=== PATIENT | female | born 1950 | race Caucasian/White ===

== ENCOUNTER 2025-09-29 11:07 | Outpatient (OUT) | payer MEDICARE, OTHER, SELFPAY ==
--- OUTSIDE RECORDS SUMMARY | 2025-09-29 11:17 | XMS_ITS | Clinical Summary ---
Author Organization [facility] Address [address] [place], [place] [id number] Care Team Providers Care Sales Operations Associate Name Role Phone Yolanda Mae MD Unavailable [phone] Allergies Active AllergyReactionsCriticalityNoted WuryTomfeecwOncuxaderqqlEsmi19/20/2022 Brompheniramine-PhenylephrineOther: See Gvcfsiui07/20/2022uloxetineUnknown 05/24/2022Ezetimibe-SimvastatinOther: See Tnubyggd16/20/2022FexofenadineHives High05/24/2022IbuprofenOther: See Gviavdtz63/20/2022MeloxicamGI Upset05/24/2022 LwfoefzackcAkupmchj73/20/2022 Medications MedicationSigDispense QuantityRefillsLast FilledStart DateEnd DateStatus acetaminophen 650 mg CR tablet Take 650 mg by mouth.Active gabapentin (NEURONTIN) 600 mg tablet Take 1 tablet by mouth three times daily.08/20/2018Active loratadine (CLARITIN) 10 mg tablet Take 1 tablet by mouth once daily.Active metFORMIN (GLUCOPHAGE) 1,000 mg tablet Take 1 tablet by mouth.03/24/2017Active pravastatin (PRAVACHOL) 20 mg tablet Take 1 tablet by mouth once daily.10/09/2016Active losartan (COZAAR) 50 mg tablet Take 50 mg by mouth once daily.01/18/2022ctive omega-3 DHA-EPA (FISH OIL) 1,200 (144-216) mg capsule Take by mouth.Active sertraline (ZOLOFT) 100 mg tablet 02/02/2022ctive tiZANidine (ZANAFLEX) 4 mg tablet Take 1 tablet by mouth once daily.03/14/2017Active levothyroxine (SYNTHROID) 25 mcg tablet Take 1 tablet by mouth once daily.03/24/2017Active cholecalciferol, Vitamin D3, (VITAMIN D3) 1,250 mcg (50,000 unit) cap capsule Take 1 capsule by mouth one time a week.Active ubidecarenone (COQ-10 ORAL) Take 100 mg by mouth.Active KRILL OIL ORAL Take by mouth.Active blood sugar diagnostic (ONETOUCH VERIO TEST STRIPS) test strip Indications:Type 2 diabetes mellitus with diabetic neuropathy, with long-term current use of insulin (HCC)Use To check Blood glucose three times daily 200 Each ctive ONETOUCH VERIO REFLECT METER Indications:Type 2 diabetes mellitus with diabetic neuropathy, with long-term current use of insulin (HCC)USE TO CHECK GLUCOSE THREE TIMES DAILY 1 Each 03/28/2022ctive Insulin [place], Disposable, (PEN NEEDLE) 32 gauge x 5/32 Indications:Type 2 diabetes mellitus without complication, with long-term current use of insulin ([facility])Use to inject insulin up to 8 times per day. 100 Each ctive acetaminophen-codeine (TYLENOL-COD #3) 300-30 mg per tablet Take 1 tablet by mouth every 4 hours as needed. 1-2 tabs max 6 a dayActive NOVOLOG FLEXPEN U-100 INSULIN 100 unit/mL (3 mL) Indications:Type 2 diabetes mellitus with diabetic neuropathy, with long-term current use of insulin ([facility])Inject 5 Units subcutaneously twice daily. Use 5 units with lunch and dinner 9 mL ctive insulin glargine (LANTUS SOLOSTAR U-100 INSULIN) 100 unit/mL (3 mL) Indications:Type 2 diabetes mellitus without complication, with long-term current use of insulin ([facility])Inject 20 Units subcutaneously every morning. 18 mL ctive Active Problems ProblemNoted DateDiagnosed DateType 2 diabetes mellitus with diabetic neuropathy, with long-term current use of rtaeptm2602/08/2022 Family History Medical HistoryRelationCommentsCancerFatherHeart diseaseFatherNo Known Problems MotherRelationStatusCommentsFatherDeceasedMotherDeceased Social History Tobacco UseTypesPacks/DayYears UsedDateSmoking Tobacco: FormerSmokeless Tobacco: Never Tobacco Cessation:Counseling Given: Not Answered Alcohol UseStandard Drinks/WeekCommentsNever0 (1 standard drink = 0.6 oz pure alcohol)Area Deprivation IndexAnswerDate RecordedNational Score (1-100), lower number is lower tgtn686303/12/2023State Score (1-10), lower number is lower risk7 3Data from: https://www.neighborhoodatlas.medicine.[facility].edu/. Last address used for Fernando Erwin 3CommentsNoSex and Gender InformationValueDate RecordedSex Assigned at WmuciRfkmnt87/22/2022 1:49 PM EDTLegal OqhLgiesb76/23/2022 3:13 PM EDTGender YioyqwofLxtyrl67/22/2022 1:49 PM EDTSexual OrientationNot on file Last Filed Vital Signs Vital SignReadingTime TakenCommentsBlood Sisbvpht162/7803 9:46 AM EDT Evpqg839401/17/2023 9:46 AM UNDQctkzmwotkr30 ??C (96.8 ??F)08/31/2022 2:55 PM EDT Respiratory Eqzv7577 2:55 PM EDTOxygen Gmgzsbqlug60%08/31/2022 2:55 PM EDTInhaled Oxygen Concentration--Kaufnv612.6 kg (321 lb)01/17/2023 9:46 AM EDT Cbhtrp191.6 cm (5' 6 )08/31/2022 2:55 PM EDTBody Mass Index51.8108/31/2022 2:55 PM EDT Plan of Treatment Health MaintenanceDue DateLast DoneCommentsDiabetic Foot Exam1Dilated Retinal Exam1960Urine Albumin:Creatinine Ratio1Annual PCP Team Chronic Disease Visit1968Anxiety Xvzivvnqt68/02/1969Depression Screening 1968Hepatitis C Uugvrwnsn17/02/1969LDL Tdiykyslnfg43/02/1969CT Jaknpqjutyel03/02/1996Cologuard (FIT-DNA)12/07/19950055Jdpumusplpx07/02/1996 Colorectal Cancer Bnbflvzoh63/02/1996Fecal Occult Blood1995Sigmoidoscopy 1995Shingrix Vaccine (1 of 2)2000RSV Vaccine (1 - Risk 60-74 years 1-dose series)2010one Density Ygaugvxng42/02/2016Medicare Annual Wellness Visit08/05/2016DTaP,Tdap,Td Vaccine (3 - Td or Tdap), 01/03/2011Mammogram Xswtrmlmi24, 03/30/20212349AiE4H60/15/2023 01/17/2023, 04/26/2022, 01/17/2022, Additional history existsAdvance Directive Otubypxxee14/01/2025Covid-19 Vaccine ( season)/10/2022, 10/12/2021, 02/03/2021, Additional history existsInfluenza Vaccine (#1) /03/2022, 09/14/2021, 07/15/2020, Additional history exists Pneumococcal Vaccine: 50+Ljhmykjuh16/29/2017, 12/15/2015, 08/15/2010 Procedures Procedure NamePriorityDate/TimeAssociated DiagnosisCommentsHEMOGLOBIN A1C (POC) Ogsbybf4901/17/2023 9:50 AM EDT Diabetes mellitus without complication (HCC) from Last 3 Months or Most Recently Relevant to Health Maintenance Results * (ABNORMAL) HEMOGLOBIN A1C (POC) (01/17/2023 9:50 AM EDT)ComponentValueRef RangeTest MethodAnalysis TimePerformed AtPathologist SignatureHemoglobin A1C (POCT)7.5(A)4.2 - 5.6 %[facility] HospitalComment: Location:[facility], [address] [place] [address], [facility] Point of care (POC) Hemoglobin A1c (HGBA1C) testing is intended to assess glucose control and provide a management tool for patients known to have diabetes and their healthcare providers. ??Target HGBA1C levels may depend on specific clinical circumstances. ??POC HGBA1C is not intended for use as a diagnostic or screening test; laboratory-based testing should be used for diagnostic purposes. ??The following information is supplemental and may not be applicable to specific diabetes management situations: ??The POC device bench assembler electrical provides a normal range of 4.2% to 6.5% for the HGBA1C POC test. However, the [place] [employer] ??guidelines indicate that patients with HGBA1C in the range of 5.7% to 6.4% are at increased risk for development of diabetes and that intervention by lifestyle modification may be beneficial. ??A HGBA1C level greater than or equal to 6.5% is considered diagnostic of diabetes, pending confirmatory testing. ??Use of HGBA1C testing to evaluate glucose control may not be appropriate for patients with hemoglobin variants or other conditions (e.g. anemia) that alter red blood cell lifespan. Specimen (Source)Anatomical Location / LateralityCollection Method / Volume Collection TimeReceived TimeBLOOD SPECIMEN / Cligyln5701/17/2023 9:50 AM EDT Narrative Authorizing ProviderResult TypeResult StatusRashika Percy MDP TESTINGFinal ResultPerforming OrganizationAddressCity/State/ZIP CodePhone Number [facility] POINT OF CARE [address] from Last 3 Months or Most Recently Relevant to Health Maintenance Insurance Care Teams Team MemberRelationshipSpecialtyStart DateEnd Date Wondercamelia, Yolanda Salazar MD [facility]01/25/22
--- OUTSIDE RECORDS SUMMARY | 2025-09-29 11:17 | XMS_ITS | Clinical Summary ---
Author Organization [facility] Address [address] [place] [address] Care Team Providers Care Lode Miner Name Role Phone Karen, Shayy BONILLA Unavailable Yolanda Mae MD Unavailable Salbador Hatch MD Primary Care Provider [phone] Allergies Active AllergyReactionsCriticalityNoted QotvEjwsygubUalfanjsqvju36/23/2023 Other Reaction(s): rash,itch Brompheniramine-Janptfexldbha38/10/2021 Other Reaction(s): Other: See Comments Other reaction(s): sleepy JfcxwwbnxbKwfgeDvhejg12/20/2022 Other Reaction(s): Unknown Other reaction(s): Unknown Duloxetine MzqRayghkw91/23/2023Ezetimibe-Srchtizvkuq90/23/2023 Other Reaction(s): aches Beoofodrbrld35/23/2023 Other Reaction(s): hives,edema Fexofenadine TcxYdsop81/05/1828Qmotpqebl96/23/2023 Other Reaction(s): sleepy Pkjklrrgei02/18/2024 Had multiple side effects Dxmpkmqje67/23/2023 Other Reaction(s): constipation Jihoynfyqlo61/23/2023 Other Reaction(s): hives/swelling Medications MedicationSigDispense QuantityRefillsLast FilledStart DateEnd DateStatus co-enzyme Q-10 30 MG capsule Take 1 tablet by mouth in the eveningActive loratadine (Claritin) 10 MG tablet Take 1 tablet by mouth DailyActive omega-3 (fish oil) 1200 MG capsule Take by mouth in the morning.Active OneTouch Verio test strip 08/10/2022ctive Continuous Blood Gluc Hematology Supervisor (FreeStyle Gaurav reader) device Indications:Diabetic peripheral neuropathy associated with type 2 diabetes mellitus (HCC)Inject 1 each under the skin if needed (to check bg levels). 1 each 08/10/2023ctive gabapentin (Neurontin) 600 MG tablet Indications:Diabetic peripheral neuropathy associated with type 2 diabetes mellitus (HCC)Take 1 tablet (600 mg) by mouth in the morning and 1 tablet (600 mg) in the evening and 1 tablet (600 mg) before bedtime. 270 tablet 02/22/2024ctive Continuous Glucose Sensor (FreeStyle Gaurav 3 Sensor) [facility] [place]ications:Diabetic peripheral neuropathy associated with type 2 diabetes mellitus (HCC)Inject 1 Device under the skin every 14 (fourteen) days 6 each ctive tiZANidine (Zanaflex) 4 MG tablet Indications:Restless legTake 1 tablet (4 mg) by mouth Daily 90 tablet ctive primidone (Mysoline) 50 MG tablet Take 50 mg by mouth at bedtimeActive insulin aspart (NovoLOG FLEXPEN) 100 UNIT/ML pen Indications:Diabetic peripheral neuropathy associated with type 2 diabetes mellitus (HCC)5 units at the evening meal 15 mL ctive levothyroxine (Synthroid) 50 MCG tablet Indications:Hypothyroidism, unspecified typeTake 1 tablet (50 mcg) by mouth in the morning. Take before meals. 90 tablet ctive cholecalciferol (Vitamin D-3) 50 MCG (2000 UT) capsule Take 2,000 Units by mouth DailyActive metFORMIN (Glucophage) 1000 MG tablet Indications:Diabetic peripheral neuropathy associated with type 2 diabetes mellitus (HCC)Take 1 tablet (1,000 mg) by mouth in the morning and 1 tablet (1,000 mg) in the evening. Take with meals. 180 tablet tive insulin pen needle (Unifine Pentips Plus) 32G x 4 mm [facility] [place] Indications:Diabetic peripheral neuropathy associated with type 2 diabetes mellitus (HCC)Use as instructed 100 each ctive clobetasol (Temovate) 0.05 % external solution Indications:Dry scalpApply topically Daily 50 mL 5Active insulin glargine (Toujeo SoloStar) 300 UNIT/ML injection Indications:Type 2 diabetes mellitus with other specified complication, with long-term current use of insulin (HCC),Type 2 diabetes mellitus with diabetic cataract, with long-term current use of insulin (HCC),termite control servicer (current) use of insulin ([facility]),Type 2 diabetes mellitus with diabetic polyneuropathy, with long- term current use of insulin ([facility])INJECT 21 UNITS SUBCUTANEOUSLY IN THE MORNING 6 mL 5Active sertraline (Zoloft) 100 MG tablet Indications:Moderate episode of recurrent major depressive disorder (HCC)Take 2 tablets (200 mg) by mouth Daily 180 tablet 3085Active losartan-hydroCHLOROthiazide (Hyzaar) 100-25 MG tablet Indications:Essential hypertensionTake 1 tablet by mouth Daily 30 tablet 1116Active buPROPion XL (Wellbutrin XL) 150 MG 24 hr tablet Indications:Major depression, recurrent, chronicTAKE 1 TABLET BY MOUTH IN THE MORNING . SWALLOW WHOLE, DO NOT CRUSH, SPLIT, OR CHEW. 30 tablet 5Active pravastatin (Pravachol) 40 MG tablet Indications:Mixed hyperlipidemiaTake 1 tablet (40 mg) by mouth Daily 90 tablet 5Active pravastatin (Pravachol) 40 MG tablet Indications:Mixed hyperlipidemiaTake 1 tablet (40 mg) by mouth Daily 90 tablet 310/Discontinued(Reorder) buPROPion XL (Wellbutrin XL) 150 MG 24 hr tablet Indications:Major depression, recurrent, chronicTake 1 tablet (150 mg) by mouth in the morning. Do not crush, chew, or split. 30 tablet 5111/14/2024Discontinued Active Problems ProblemNoted DateDiagnosed DateCharcot's joint, right ankle and foot05/29/2025 Primary osteoarthritis, right ankle and foot05/29/20259725Jiahuy98/11/2024iabetic jypakjrd12/03/2024Major depression, recurrent, wwlqxhi3510/02/2023ubital tunnel syndrome of both upper vqsoezexutd25/19/6343Ukctkvtea42/19/2023Tinnitus aurium, qxljjksan61/19/2023ognitive lryayan4808/23/2023Low back pain with bilateral vceoasxr91/24/2023cquired hallux varus03/27/2023ngiopathy, siticbbm99/23/2023 Uzzeqpx9203/27/20237723Itbyzlsahh43/23/2023ilateral qevmbrtd22/23/2023hronic reactive otitis externa of both ears03/27/2023egeneration of cervical intervertebral disc03/27/20239026Wnxcgb14/23/2023Scalp wlrwzcqti43/23/2023Essential /23/2023ait mhizlsmjdgn08/23/2023History of total hysterectomy 03/27/20231444Fmcvltluzxnusswpzyjm52/23/2023Mixed mdyzshpuwqfalp07/23/2023 Yfqywvxnzem35/23/2023Left anterior fascicular block03/27/2023LVH (left ventricular hypertrophy)03/27/2023Macular edema of left eye03/27/2023Menopausal state03/27/2023Obsessive-compulsive fmcpsshe03/23/1781Klfxucojfncxoz68/23/2023 DJD (degenerative joint disease)03/27/20232334Hcmifalavr09/23/2023eripheral vascular djnrnrg6803/27/2023Vitamin D xsyozrqvda99/23/2023Macular puckering, left eye01/02/2023ody mass index (BMI) of 50-59.9 in adult09/13/2021eripheral angiopathy due to type 2 diabetes osnitwtt46/29/2021evere knewknj5606/29/2021 Abnormal EKG002/04/2021ong term current use of hdrlvdm1807/16/2020Elevated liver jwqoebj8407/16/2020Malignant melanoma of skin04/01/2019Headache jbtyqgzp98/30/2018 Secondary localized osteoarthrosis of ankle and foot08/14/2018Chronic pain 09/03/2017Diabetic peripheral neuropathy associated with type 2 diabetes bjemqbsl49/29/2017 Assessment & Plan (07/09/2023 2:06 PM EDT): During the appointment today all pertinent labs, imaging, health maintenance, and glucose readings were reviewed. Encouraged to check blood glucose throughout the day with some fasting and some PP readings. They are to bring their glucose meter/cgm in to all appointments. All of the patients questions, treatment options, and current care plan and goals were discussed. Acopy of this along with pertinent instructions were given to the patient at the end of the appointment. The patient voices understanding of all of this and is to call in between appointments if they have any problems or questions. Dao Manning control is stable overall. , Discussed dietary changes at length. Encouraged to limitsimple carbs and focus more on healthy protein/fat with all meals and snacks. They should also avoid any sugary drinks. , Discussed importance of checking blood glucose regularly and bringing them into their appointment in order for me to better adjust their medications. , Instructed on the importance of taking insulin before eating. If it has been more than 30-45 min since eating they should not give the meal dose but should just give a correction insulin dose. , Instructed on the proper insulin injection technique either in the abdomen, upper outer thigh, or back of the arm. They are to rotate injection sites to prevent scar tissue. , Instructions given today include: Hypoglycemia management, Insulin instructions, and Dietary education. Will work on getting her a gaurav 3 cgm to better manage her diabetes on a daily basis and work on improving her diet. PURVI on CPAP12/27/2016History of methicillin resistant Staphylococcus aureus oqdagalhu96/01/2015Seasonal allergic ezbwlnwy50/01/2015Restless legs10/05/2015 Resolved Problems ProblemNoted DateDiagnosed DateResolved DateSweating zeoqgnefxai88/11/2024 11/03/2024harcot's arthropathy associated with type 2 diabetes mellitus Episode of recurrent major depressive mhrffzep86/23/2023 09/05/20232964Brlwlihxmhigvr04/23/202309/01/2023Skin ulcer of toe of left foot with fat layer rosfxrv58Type 2 diabetes whwcvlcu32/23/2023 07/06/2023rimary localized osteoarthrosis of ankle and foot Ulcer of foot due to type 2 diabetes tffivdog35hronic foot ulcerSkin ulcer of toe of right foot with fat layer exposed Obsessive compulsive / Sensorineural hearing loss (SNHL) of both ears/iabetic neuropathic rxlnkadjwny50astroesophageal reflux disease Encounters DateTypeDepartmentCare GvuhYrssjccnmyz79/20/2025Refill [place] [id number] [facility] [place] [phone] Salbador Hatch MD Mixed thtzohlkgfwujl56/10/2025 12:00 PM ESTTelemedicine [facility] [address] [facility] [address] Esperanza Peters LISW-S Moderate episode of recurrent major depressive disorder (HCC)09/14/2025Travel 09/13/2025Refill [id number] [facility] [place] [phone] Salbador Hatch MD Major depression, recurrent, lgwtpli0408/11/2025 1:00 PM EDTOffice Visit [place] [address] [facility] [place] [phone] Salbador Hatch MD Essential hypertension (Primary Dx); Type 2 diabetes mellitus with other specified complication, with long-term current use of insulin (HCC); Severe obesity ([facility]-HCC); Degeneration of cervical intervertebral disc; Osteopenia, unspecified location; Hypothyroidism, unspecified type; Diaphoresis; Balance trwobsm7308/11/2025Orders Only [address] [place] [phone] Salbador Hatch MD 08/11/2025amboo flowsheet [place] [id number] [facility] [place] [phone] Salbador Hatch MD 08/11/20258404Tifcvg59/02/2025 11:00 AM EDTSocial Work [facility] [address] [facility] [place] [address] Tichnor, Esperanza S, FRUIT RO[employer] HAND-S Moderate episode of recurrent major depressive disorder (HCC)08/06/2025amb flowsheet [facility] [address] [facility] [place] [address] Esperanza Peters LISW-S 08/06/20252303Kqvcwk80/09/2025 1:00 PM EDTOffice Visit [place] [address] [place] [address] Salbador Hatch MD Type 2 diabetes mellitus with other specified complication, with long-term current use of insulin (HCC) (Primary Dx); 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 [address] Esperanza Peters LISW-S Moderate episode of recurrent major depressive disorder (HCC)07/07/2025amb flowsheet [facility] [address] [place] [address] Esperanza Peters LISW-S 07/07/2025Travelfrom Last 3 Months Immunizations ImmunizationAdministration DatesNext DueInfluenza, High Dose Seasonal, Preservative Free09/09/2019,09/03/2018,09/03/2017,08/02/2016Influenza, High-dose Seasonal, Quadrivalent, Preservative Free09/05/2023,08/09/2022,09/14/2021, 07/15/2020Influenza, injectable, quadrivalent, preservative free07/30/2014 Influenza, seasonal, intradermal, preservative free08/03/2015Moderna SARS-CoV-2 50mcg/0.5mL Nytoigs87/12/2022Pneumococcal Conjugate PCV 13012/15/2015Pneumococcal Polysaccharide HZGG5118,08/15/2010Tdap03/22/2011 Family History Medical HistoryRelationNameCommentsCancerFatherDepressionFatherHeart disease FatherMelanomaFatherRheum arthritisFatherAtrial fibrillationMotherHeart disease MotherMacular degenerationMotherDiabetesOthergrandparent, aunt, uncleCancer SiblingBreast cancerSisterThyroid diseaseSisterDiabetesSontoe amputationSon RelationNameStatusCommentsFatherDeceasedMotherDeceasedOthergrandparent, aunt, uncleSiblingDeceasedSisterDeceasedSon Social History Tobacco UseTypesPacks/DayYears UsedDateSmoking Tobacco: FormerCigarettes Smokeless Tobacco: Never Tobacco Cessation:Counseling Given: Not Answered Alcohol UseStandard Drinks/WeekCommentsNever0 (1 standard drink = 0.6 oz pure alcohol)caffeine: 3-4 cups per day blackPHQ-2AnswerDate RecordedPatient Health Questionnaire-2 Lbops755CommentsNoSex and Gender Information ValueDate RecordedSex Assigned at BirthNot on fileLegal ZinKhavqk41/15/2023 6:59 PM EDTGender IdentityNot on fileSexual OrientationNot on file Last Filed Vital Signs Vital SignReadingTime TakenCommentsBlood Xrsruagh137/7610 1:03 PM EDT Basbq488708/11/2025 1:03 PM TPPIotcsoarbqi43.4 ??C (97.5 ??F)12/24/2024 2:05 PM ESTRespiratory Jvhy474712/24/2024 2:05 PM ESTOxygen Qcnajwvlbh61%07/14/2025 1:01 PM EDTInhaled Oxygen Concentration--Kipqso824 kg (322 lb)08/11/2025 1:03 PM EDT Qpbgyt233.6 cm (5' 6 )04/21/2025 9:37 AM EDTBody Mass Index51.9704/21/2025 9:37 AM EDT Plan of Treatment DateTypeDepartmentCare Team (Latest Contact Info)Oyycbridgoh34/15/2025 1:00 PM ESTSocial Work [facility] [address] [place] [address] Esperanza Peters, DAVEY-S [address] [place] [address] 11/11/2025 1:[address] [facility] [address] [place] [phone] Salbador Hatch MD [address] [place], [place] [id number] Health MaintenanceDue DateLast DoneCommentsCT Vbuibrarycsa39/02/1951FIT-DNA 1950FIT1950FOBT1950 6990Yqbdlngzglttt68/02/1951olonoscopy /, 06/25/2015COVID-19 Vaccine ( season)2025 08/16/2022, 08/16/2022, 10/12/2021, Additional history existsInfluenza Vaccine (#1)/11/2022, 08/09/2022, 09/14/2021, Additional history exists Diabetes: Hemoglobin A1C9/07/2025, 04/02/2025, 01/14/2025, Additional history existsDiabetes: Urine Protein Gzxsvirnl37/10/2025, 06/15/2021, 02/19/2018Diabetes: Retinopathy Uifaygmzf06/, 09/04/2023, 12/21/2022, Additional history existsColorectal Cancer Olstcwnmh35/29/2026 Postponed from 1950 (Patient Refused)Medicare Annual Wellness (AWV) , 03/06/2024, 02/28/2023, Additional history exists Pneumococcal Vaccine: 65+ FuxrwEerbesayz71/29/2017, 12/15/2015, 08/15/2010 EahytnuddCqgjgguwpazn15/08/2023, 03/30/2021, 02/08/2021, Additional history exists Goals GoalPatient Goal TypeAssociated ProblemsRecent ProgressPatient-Stated?Author Help patient manage antidepressant medication Care PlanPatient on antidepressant monitoring Maci Figueroa Procedures Procedure NamePriorityDate/TimeAssociated DiagnosisCommentsPOCT GLYCOSYLATED HEMOGLOBIN (HGB A1C)Dytvnwq3007/14/2025 1:29 PM EDT 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) Type 2 diabetes mellitus with other specified complication, with long-term current use of insulin (HCC) DIABETIC RETINOPATHY SCREENING - OU - BOTH WRHHFqczduv81/23/2025 11:04 AM EDT MICROALBUMIN / CREATININE URINE PPQFADcuovpw70/12/2025 3:57 PM EDT Diabetic peripheral neuropathy associated with type 2 diabetes mellitus (HCC) BI MAMMOGRAM SCREENING TOMOSYNTHESIS CTYEUGLBHPolckly84/08/2023 3:32 PM EDT Encounter for screening mammogram for malignant neoplasm of breast CADEGCJUGNRWikyuiy29/24/2015 12:00 PM EDT from Last 3 Months or Most Recently Relevant to Health Maintenance Results * POCT glycosylated hemoglobin (Hb A1C) docked device (07/14/2025 1:29 PM EDT) ComponentValueRef RangeTest MethodAnalysis TimePerformed AtPathologist SignatureHemoglobin A1C6.2Specimen (Source)Anatomical Location / Laterality Collection Method / VolumeCollection TimeReceived TimeBloodVenous blood specimen / Fbkpcjg8807/14/2025 1:29 PM EDT Narrative Authorizing ProviderResult TypeResult StatusMarvin Stalter MDPOINT OF CARE TEST ENTER/EDIT ORDERABLESFinal Result * Diabetic Retinopathy Screening - OU - Both Eyes (03/27/2025 11:04 AM EDT) Anatomical RegionLateralityModalityHeadOther Narrative Authorizing ProviderResult TypeResult StatusGreg Derodes [facility] PH[facility] Final Result * Microalbumin / creatinine, urine ratio (01/14/2025 3:57 PM EDT)ComponentValue Ref RangeTest MethodAnalysis TimePerformed AtPathologist SignatureCREATININE, RANDOM SKVOQ8718 - 275 mg/dLQUESTALBUMIN, URINE0.5See Note: mg/dLQUESTComment: Reference Range: Reference Range Not established ALBUMIN/CREATININE RATIO, RANDOM URINE5<30 mg/g creatQUESTComment: The ADA defines abnormalities in albumin excretion as follows: Albuminuria Category ?Result (mg/g creatinine) Normal to Mildly increased <30 Moderately increased ? 30-299 Severely increased > OR = 300 The ADA recommends that at least two of three specimens collected within a 3-6 month period be abnormal before considering a patient to be within a diagnostic category. Specimen (Source)Anatomical Location / LateralityCollection Method / Volume Collection TimeReceived TimeUrineUrine specimen obtained by clean catch procedure / Rhcdnya2201/14/2025 3:57 PM EDT01/14/2025 3:57 PM EDT Narrative Resulting Agency Comment Performing Organization Information ?Site ID: QPT ?Name: [facility] ?Address: [address] [place] [id number] ?Director: Joshua Barker MD Authorizing ProviderResult TypeResult StatusYolanda GARVEY URINE ORDERABLESFinal ResultPerforming OrganizationAddressCity/State/ZIP CodePhone Number [facility]ST * Bilateral screening mammogram with tomosynthesis (04/12/2023 3:32 PM EDT) Anatomical RegionLateralityModalityBreastBilateralMammographySpecimen (Source) Anatomical Location / LateralityCollection Method / VolumeCollection Time Received Time04/17/2023 7:05 AM EDT Impressions 04/17/2023 7:53 AM EDT BIRADS 2 - Benign Recommended follow-up: Routine Screening Mamm Board Certified Radiologists. ??Accredited by the ACR and FDA. MAMMOGRAPHY IS VERY IMPORTANT TO YOUR HEALTH. ??THE [employer]ET[employer] GUIDELINES RECOMMEND THAT WOMEN 40 YEARS OF AGE AND OLDER SHOULD HAVE A MAMMOGRAM EVERY YEAR. A REMINDER LETTER WILL BE SENT AT THE APPROPRIATE TIME. ??THIS FACILITY UTILIZES A REMINDER SYSTEM TO ENSURE ALL PATIENTS RECEIVE REMINDER NOTIFICATIONS AT THE APPROPRIATE TIME BASED ON THE RECOMMENDATIONS OF THIS EXAM. THIS INCLUDES REMINDERS FOR ROUTINE SCREENING MAMMOGRAMS, DIAGNOSTIC MAMMOGRAMS IN WHICH THE PATIENT IS ASKED TO RETURN FOR ADDITIONAL VIEWS, OR OTHER BREAST IMAGING INTERVENTIONS WHEN APPROPRIATE. THE PATIENT WILL BE PLACED IN THE APPROPRIATE REMINDER SYSTEM INCLUDING A REMINDER AT THE APPROPRIATE TIME FOR ANY PENDING ADDITIONAL VIEWS. ELECTRONICALLY SIGNED BY: Brody Diaz MD Narrative 04/17/2023 7:53 AM EDT EXAMINATION: CLINICAL HISTORY: COMPARISON: ??March 30, 2021, October 08, 2017 ?? RESULT: 3-D tomosynthesis imaging of the bilateral breasts was performed. Density: ??Scattered fibroglandular density [2] Typically benign calcifications. ??Left central breast biopsy clip, with stable nodular fibroglandular tissue. There ?? are no suspicious masses or asymmetries, areas of architectural distortion or suspicious areas of microcalcifications. ?? CAD analysis was performed and used in the interpretation. Authorizing ProviderResult TypeResult StatusYolanda Mae MDIMG BI PROCEDURES Final Result * Colonoscopy (06/28/2015 12:00 PM EDT)Anatomical RegionLateralityModality EndoscopySpecimen (Source)Anatomical Location / LateralityCollection Method / VolumeCollection TimeReceived Time06/28/2015 12:00 PM EDT Narrative 06/28/2015 12:00 PM EDT PERFORMED AT [facility] LOCATION:[id number] Procedure Note CONVERSION, GENERIC - 03/22/2023 PERFORMED AT [facility] LOCATION:[id number] Authorizing ProviderResult TypeResult StatusYolanda Mae MDENDOSCOPY PROCEDURE ORDERABLESFinal Result from Last 3 Months or Most Recently Relevant to Health Maintenance Additional Health Concerns Active ProblemsNoted DateDiagnosed DatePatient on antidepressant monitoring plan 07/23/2023 Insurance Care Teams Team MemberRelationshipSpecialtyStart DateEnd Date Yolanda Mae MD PCP - [facility]03/29/23 Salbador Hatch MD [address] [place] [address] [facility] - [facility] Shayy Jones NP [address] [place] [address] Family Medicine03/26/23
--- OUTSIDE RECORDS SUMMARY | 2025-09-29 11:17 | XMS_ITS | Clinical Summary ---
Author Organization [facility] Address [address] [facility], [address] [place] [address] Care Team Providers Care Assistant Sales Center Manager Name Role Phone Yolanda Mae MD Primary Care Provider [phone] Allergies Active AllergyReactionsCriticalityNoted LpvlLopeofljCnzesjjqkrmy96/10/2021 Other reaction(s): rash,itch Brompheniramine-Loqszipkikiiw65/10/2021 Other reaction(s): sleepy OnffotzzvrKjeklYizxvg07/27/2023Duloxetine Hcl09/14/2021 Other reaction(s): Unknown Ezetimibe-Hkuvesuevbv49/10/2021 Other reaction(s): aches ChjasplxoyftPcvyrBvkp16/14/2017MeloxicamNausea And BlztucslGam10/20/2022 Other reaction(s): GI Upset YyxyjxocmxvHprhztkqJrvwco59/20/2022 Medications MedicationSigDispense QuantityRefillsLast FilledStart DateEnd DateStatus losartan (COZAAR) 50 MG tablet Take 50 mg by mouth daily01/18/2022ctive Sertraline HCl 200 MG CAPS Take 200 mg by mouth daily02/19/2018Active metFORMIN (GLUCOPHAGE) 1000 MG tablet Take 1,000 mg by mouth 2 times daily03/24/2017Active gabapentin (NEURONTIN) 600 MG tablet Take 600 mg by mouth 4 times daily.08/20/2018Active levothyroxine (SYNTHROID) 25 MCG tablet Take 25 mcg by mouth at ombcdsc8603/24/2017Active insulin glargine (LANTUS;BASAGLAR) 100 UNIT/ML injection pen Inject 20 Units into the skin daily04/26/2022ctive insulin aspart (NOVOLOG FLEXPEN) 100 UNIT/ML injection pen Inject 5 Units into the skin 2 times daily10/16/2022ctive tiZANidine (ZANAFLEX) 4 MG tablet Take 4 mg by mouth daily03/14/2017Active vitamin D (CHOLECALCIFEROL) 92547 UNIT CAPS Take 50,000 Units by mouth once a weekActive Coenzyme Q10 (COQ10 PO) Take 1 tablet by mouth every eveningActive [place]-3 Fatty Acids (FISH OIL) 1000 MG CPDR Take 1,000 mg by mouth every eveningActive ibuprofen (ADVIL;MOTRIN) 200 MG tablet Take 200 mg by mouth every 6 hours as needed for PainActive acetaminophen (TYLENOL) 325 MG tablet Take 650 mg by mouth every 6 hours as needed for PainActive Active Problems ProblemNoted DateDiagnosed DateMacular puckering, left eye01/02/2023 Family History Medical HistoryRelationNameCommentsHeart DiseaseFatherMelanomaFathereyeAtrial FibrillationMotherMacular DegenMotherRelationNameStatusCommentsFatherDeceased MotherDeceased Social History Tobacco UseTypesPacks/DayYears UsedDateSmoking Tobacco: FormerCigarettes Smokeless Tobacco: Never Tobacco Cessation:Counseling Given: Not Answered Alcohol UseStandard Drinks/WeekCommentsNot Currently0 (1 standard drink = 0.6 oz pure alcohol)CommentsNoSex and Gender InformationValueDate RecordedSex Assigned at BirthNot on fileLegal NnvJcpkyk71/10/2013 9:37 PM ESTGender Identity Not on fileSexual OrientationNot on file Last Filed Vital Signs Vital SignReadingTime TakenCommentsBlood Vjjtycsa442/9901/02/2023 2:30 PM EST Exnjo6886/28/2023 2:30 PM OMIRomrtknsjdo99.1 ??C (97 ??F)01/02/2023 2:15 PM EST Respiratory Bazh752701/02/2023 2:30 PM ESTOxygen Vjvjdzjtvz03%01/02/2023 2:30 PM ESTInhaled Oxygen Concentration--Njpzfy022.9 kg (315 lb)01/02/2023 11:55 AM EST Rhvaps821.6 cm (5' 6 )01/02/2023 11:55 AM ESTBody Mass Index50.8401/02/2023 11:55 AM EST Plan of Treatment Health MaintenanceDue DateLast DoneCommentsRespiratory Syncytial Virus (RSV) or age 60 yrs+ (1 - Risk 60-74 years 1-dose series)2010 DTaP/Tdap/Td vaccine (2 - Td or Tdap)Flu vaccine (#1) 5111/14/2020, 07/15/2020, 09/09/2019, Additional history existsCOVID-19 Vaccine ( season), 02/02/2021, 1Polio vaccineAged OutNo longer eligible based on patient's age to complete this topic Insurance Care Teams Team MemberRelationshipSpecialtyStart DateEnd Date Yolanda Mae MD [address] [place] [address] PCP - GeneralFamily Medicine12/28/22
--- OUTSIDE RECORDS SUMMARY | 2025-09-29 11:17 | XMS_ITS | Encounter Summary ---
Author Organization [facility] Address [address] [place] [address] Care Team Providers Care Junior Database Administrator Name Role Phone Karen Shayy BONILLA Unavailable Yolanda Mae MD Unavailable Salbador Hatch MD Primary Care Provider [phone] Encounter Details DateTypeDepartmentCare Team (Latest Contact Info)Ylqhznwksrb80/20/2025[facility] [address] [place] [address] Salbador Hatch MD [address] [place] [address] Mixed hyperlipidemia Social History Tobacco UseTypesPacks/DayYears UsedDateSmoking Tobacco: FormerCigarettes Smokeless Tobacco: NeverAlcohol UseStandard Drinks/WeekCommentsNever0 (1 standard drink = 0.6 oz pure alcohol)caffeine: 3-4 cups per day blackPHQ-2Answer Date RecordedPatient Health Questionnaire-2 Sadfd960CommentsNo Sex and Gender InformationValueDate RecordedSex Assigned at BirthNot on file Legal KfjYpehgy49/15/2023 6:59 PM EDTGender IdentityNot on fileSexual OrientationNot on filedocumented as of this encounter Plan of Treatment DateTypeDepartmentCare Team (Latest Contact Info)Dwzzbirxaki90/15/2025 1:00 PM ESTSocial Work [facility] [address] [place] [address] Esperanza Peters LISW-S [address] [facility] [place] [place], [place] [address] 11/11/2025 1:00 PM ESTOffice Visit [facility] [address] [facility] [place] [phone] Salbador Hatch MD [address] [facility] [place], [place] [id number] documented as of this encounter Goals GoalPatient Goal TypeAssociated ProblemsRecent ProgressPatient-Stated?Author Help patient manage antidepressant medication Care PlanPatient on antidepressant monitoring planNoWhMaci tellezdocumented as of this encounter Visit Diagnoses Diagnosis Mixed hyperlipidemia documented in this encounter Additional Health Concerns Active ProblemsNoted DateDiagnosed DatePatient on antidepressant monitoring plan 3AssessmentNoted TimePHQ-9 Depression Total Score: 16004/02/2025 10:00 AM EDTdocumented as of this encounter Care Teams Team MemberRelationshipSpecialtyStart DateEnd Date Yolanda Mae MD PCP - ACO Reach03/29/23 Salbador Hatch MD [address] [facility] [place] [address] PCP - GeneralFamily Medicine07/09/25 Shayy Jones NP [address] [facility] [place] [place], [place] [id number] Family Medicine03/26/23documented as of this encounter
--- OUTSIDE RECORDS SUMMARY | 2025-09-29 11:17 | XMS_ITS | Encounter Summary ---
Author Organization [facility] tem Address [id number] [place] [address] Care Team Providers Care Manager Content Name Role Phone Yolanda Mae MD Primary Care Provider [phone] Reason for Visit * ReasonOnset IlkwDijfynovwicsoxkviq66/12/2025 Encounter Details DateTypeDepartmentCare Team (Latest Contact Info)Wwnmrjzmeif82/12/2025Telephone [facility] Department of [facility] [address] [facility] [address] [place] [phone] Pallavi Lewis Social History Tobacco UseTypesPacks/DayYears UsedDateSmoking Tobacco: FormerCigarettesQuit: 1974Smokeless Tobacco: NeverAlcohol UseStandard Drinks/WeekCommentsNo0 (1 standard drink = 0.6 oz pure alcohol)PHQ-2AnswerDate RecordedTotal Score0 5ChildcareAnswerDate AtgwdfdzVpcgjuvwsJgqbfcg19/12/2019EmploymentAnswer Date YuwzhrnyIdajsplvbkQyvwflb96/12/2019Hunger ScreeningAnswerDate Recorded Within the past 12 months we worried whether our food would run out before we got money to buy more.Never True02/26/2025Within the past 12 months the food we bought just didn't last and we didn't have money to get more.Never True 02/26/2025Purpose - LifeAnswerDate RecordedPurpose and direction in lifeUnknown 1CommentsNoSex and Gender InformationValueDate RecordedSex Assigned at BirthNot on fileLegal FvyZttzeb61/06/2015 11:26 AM EDTGender IdentityNot on fileSexual OrientationNot on filedocumented as of this encounter Miscellaneous Notes * Telephone Encounter - Pallavi Lewis - 09/16/2025 1:03 PM EST Exterior Designer received a call from patient to reschedule appointment. Rescheduled for 11/03/25 documented in this encounter Plan of Treatment DateTypeDepartmentCare Team (Latest Contact Info)Hidbjkcfcsp47/30/2025 11:30 AM ESTOffice Visit [facility] Department of [address] [place] [phone] Juanpablo Koch MD [address] [place] [address] [address] [place] [address] 11/18/2025 9:00 AM ESTOffice Visit [facility] Department of [address] [place] [address] Lawrence Cheema MD [address] [place] [address] [address] [place] [phone] documented as of this encounter Visit Diagnoses Not on filedocumented in this encounter Additional Health Concerns AssessmentNoted TimePHQ-9 Depression Total Score: 12:06 PM EDT documented as of this encounter Care Teams Team MemberRelationshipSpecialtyStart DateEnd Date Yolanda Mae MD [address] [place] [address] PCP - GeneralFamily Medicine12/27/16documented as of this encounter
--- OUTSIDE RECORDS SUMMARY | 2025-09-29 11:17 | XMS_ITS | Clinical Summary ---
Author Organization [facility] Address [address] [place] [address] Care Team Providers Care Customs Inspector Name Role Phone Yolanda Mae MD Primary Care Provider [phone] Allergies Active AllergyReactionsCriticalityNoted DateCommentsAtorvastatinRashLow 09/14/2021 Other reaction(s): rash,itch Other Reaction(s): rash,itch Other reaction(s): rash,itch Other Reaction(s): rash,itch Brompheniramine-LydhiizannlmtZizvp14/10/2021 Other reaction(s): sleepy Other Reaction(s): Other: See Comments Other reaction(s): sleepy DuloxetineHives,XgoiaafGpuwza34/10/2021 Other reaction(s): Unknown Other Reaction(s): Unknown Other reaction(s): Unknown NfowooljxwctKufkzGugh71/14/2017 Other Reaction(s): hives,edema HsoiirqkmInrkv89/20/2022 Other Reaction(s): sleepy AfyxctqpkaQzoxi64/18/2024 Had multiple side effects SitagliptinSwelling,ZgytulpDcxqri22/20/2022 Other Reaction(s): hives/swelling Medications MedicationSigDispense QuantityRefillsLast FilledStart DateEnd DateStatus baclofen (Lioresal) 10 mg tablet TAKE 1/2 TO 1 (ONE-HALF TO ONE) TABLET BY MOUTH THREE TIMES DAILY NEEDED FOR HEADACHE/NECK PAIN06/17/2024ctive cholecalciferol (Vitamin D-3) 1,250 mcg (50,000 unit) capsule Take 50,000 Units by mouth every 7 (seven) days.Active DOCOSAHEXAENOIC ACID ORAL Take by mouth in the morning.Active gabapentin (Neurontin) 600 mg tablet TAKE 1 TABLET BY MOUTH IN THE MORNING, THEN 1 IN THE AFTERNOON, THEN 2 TABLETS AT GMUZHMQ90/07/2025Active insulin aspart (NovoLOG) 100 unit/mL (3 mL) injection pen 5 units at the evening meal05/26/2024ctive levothyroxine (Synthroid, Levoxyl) 50 mcg tablet Take 50 mcg by mouth in the morning.Active losartan (Cozaar) 100 mg tablet Take 100 mg by mouth in the morning.10/02/2023ctive metFORMIN (Glucophage) 1,000 mg tablet Take 1,000 mg by mouth twice a day.03/24/2017Active pravastatin (Pravachol) 20 mg tablet Take 20 mg by mouth in the morning.10/09/2016Active primidone (Mysoline) 50 mg tablet Take 50 mg by mouth in the morning.07/01/2024ctive rimegepant 75 mg tablet,disintegrating 1 tablet p.o. at the onset headache/migraine. Maximum 1 tablet per day10/04/2024 Active sertraline 200 mg capsule Take 200 mg by mouth in the morning.02/19/2018Active tiZANidine (Zanaflex) 4 mg tablet Take 4 mg by mouth in the morning.03/14/2017Active clobetasol (Temovate) 0.05 % external solution Apply topically in the morning.01/14/2025tive acetaminophen-codeine (Tylenol w/ Codeine #3) 300-30 mg tablet TAKE 1 TABLET BY MOUTH ONCE DAILY NEEDED FOR SEVERE PAIN FOR UP TO 7 DAYS 5Active Ventolin HFA 90 mcg/actuation inhaler 5Active Toujeo SoloStar U-300 Insulin 300 unit/mL (1.5 mL) injection pen INJECT 21 UNITS SUBCUTANEOUSLY IN THE OCQHWDV91/23/2025Active ALPRAZolam (Xanax) 0.25 mg tablet Take by mouth in the morning.Active methylPREDNISolone (Medrol Dospak) 4 mg tablets Indications:Spondylosis without myelopathy or radiculopathy, cervical region Follow schedule on package instructions 21 tablet Expired Active Problems ProblemNoted DateDiagnosed DateSpondylosis without myelopathy or radiculopathy, cervical ddnjiz0203/10/20254529Mkzejk19/11/2024iabetic jmablegn35/03/2024Major depression, recurrent, zyrfniy1610/02/2023ognitive iwydxwo1408/23/2023ubital tunnel syndrome of both upper pigzfcfxzmk41/19/7002Bxazefabj85/19/2023Low back pain with bilateral emncqyqn90/24/2023cquired hallux varus03/27/2023nxiety 03/27/20234271Cgmirzaimq69/23/2023Essential dhnogjddhcjm24/23/2023hronic reactive otitis externa of both ears03/27/2023egeneration of cervical intervertebral disc03/27/20232678Luamod26/23/2023Scalp frrryjupj36/23/2023ait disturbance 03/27/20237693Noeyfbgoxhj74/23/2023History of total itgtjlvbzkkm69/23/2023Left anterior fascicular block03/27/2023LVH (left ventricular hypertrophy)03/27/2023 Macular edema of left eye03/27/2023Menopausal state03/27/2023 Cygcjzaqkdwhynmrrddp05/23/2023Obsessive-compulsive kjihqfhh71/23/2023 Gjloqlnpwngwpi46/23/1444Skcohblszy23/23/2023eripheral vascular disease 03/27/2023Tinnitus aurium, /23/2023Vitamin D xbbfsptoef54/23/2023 Macular puckering, left eye01/02/2023reoperative fgloytijr23/22/2022Type 2 diabetes mellitus with diabetic neuropathy, with long-term current use of ukqeofg7002/08/2022ody mass index (BMI) of 50-59.9 in adult09/13/2021eripheral angiopathy due to type 2 diabetes zjoytsnl87/29/2021evere nsodqcu2606/29/2021 Abnormal EKG002/04/2021enign essential HTN02/04/2021lass 3 severe obesity due to excess calories without serious comorbidity in adult02/04/2021Mixed qxxcvkqgzyhpva99/02/2021OB (shortness of breath)01/06/2021ubacute cough 01/06/2021levated liver xlxkxkx2707/16/2020Long term current use of insulin 07/16/2020Malignant melanoma of skin04/01/2019Headache pofexhps07/30/2018 Secondary localized osteoarthrosis of ankle and foot08/14/2018Chronic pain 09/03/2017Diabetic peripheral neuropathy associated with type 2 diabetes /29/2017OSA on CPAP12/27/2016History of methicillin resistant Staphylococcus aureus opjokxwtf59/01/2015Restless legs10/05/2015Seasonal allergic qucwqygl67/01/2015 Encounters DateTypeDepartmentCare DlqoOnuhgpxonep50/13/2025Telephone [facility] [[email or web address] Procedure Room [address] [place] [address] [place] [phone] Dao Somers, JAYLAN 09/17/2025Orders Only [facility] [[email or web address] Pain Medicine [address] [place] [address] [place] [phone] Jimena Cai CNP Spondylosis without myelopathy or radiculopathy, cervical region (Primary Dx) 09/10/2025 10:55 AM EST - 09/10/2025 11:59 PM ESTHospital Encounter [facility] [[email or web address]] X-Ray Imaging [address] [place] [phone] Radiculopathy, cervical region Discharge Disposition: Home or Self Care ()09/10/2025 10:55 AM EST - 09/10/2025 11:59 PM ESTHospital Encounter [facility] [[email or web address] Procedure Room [address] [place] [address] [place] [phone] Jayden Sykes MD Radiculopathy, cervical region Discharge Disposition: Home or Self Care ()08/27/2025 11:03 AM EDT - 08/27/2025 11:59 PM EDTHospital Encounter [facility] [[email or web address]] [facility] Procedure Room [address] [place] [address] [place] [phone] Jayden Sykes MD Spondylosis without myelopathy or radiculopathy, cervical region Discharge Disposition: Home or Self Care ()08/27/2025 7:05 AM EDT - 08/27/2025 11:02 AM EDTHospital Encounter [facility] [[email or web address]] X-Ray Imaging [address] [place] [phone] Spondylosis without myelopathy or radiculopathy, cervical region Discharge Disposition: Home or Self Care (01)from Last 3 Months Social History Tobacco UseTypesPacks/DayYears UsedDateSmoking Tobacco: FormerCigarettes Smokeless Tobacco: Never Tobacco Cessation:Counseling Given: Not Answered Alcohol UseStandard Drinks/WeekCommentsNever0 (1 standard drink = 0.6 oz pure alcohol)Humiliation, Afraid, Rape, and Kick questionnaireAnswerDate Recorded Within the last year, have you been afraid of your partner or ex-partner?No 03/10/2025Emotionally AbusedNot on file03/10/2025Physically AbusedNot on file 03/10/2025Sexually AbusedNot on file03/10/2025PHQ-2AnswerDate RecordedPatient Health Questionnaire-2 Gosrd71103/10/2025CommentsNoSex and Gender InformationValueDate RecordedSex Assigned at ZxzlmFabexf91/23/2025 11:03 AM EDT Legal GwoPgfdlx57/29/2022 10:14 PM EDTGender MybjzioaYqglma67/23/2025 11:03 AM EDTSexual OrientationHeterosexual or Jaeugnvy85/23/2025 11:03 AM EDT Last Filed Vital Signs Vital SignReadingTime TakenCommentsBlood Aunsssqc444/8309/10/2025 12:12 PM EST Txztg198709/10/2025 12:12 PM ESTTemperature--Respiratory Kvni542011/10/2024 12:12 PM ESTOxygen Dmafuwcaen91%09/10/2025 12:12 PM ESTInhaled Oxygen Concentration-- Mtouey814 kg (318 lb)09/10/2025 11:06 AM HAAGurtws998.6 cm (5' 6 )09/10/2025 11:06 AM ESTBody Mass Index51.33111/10/2024 11:06 AM EST Plan of Treatment DateTypeDepartmentCare Team (Latest Contact Info)Xbqajxxwyfj45/12/2026 11:00 AM ESTFollow-Up [facility] [[email or web address] Pain Medicine [address] [place] [phone] Jayden Sykes MD [address] [place] [address] Health MaintenanceDue DateLast DoneCommentsCT Lfuklfurwocb37/02/1951Diabetes: Hemoglobin A1C1950FIT-DNA1950FIT1950FOBT1950Medicare Annual Wellness (AWV)1950 7390Zjvczihtbyzqk73/02/1951Diabetes: Retinopathy Dcztsmpzz73/02/1961Zoster Vaccines (1 of 2)2000Adult Pzyzgmv0403/22/2021 03/22/20118627Llpnychzs49/08/202506/5650Efscgliizwa19Colorectal Cancer Vtgsptemw90/24/2025OVID-19 Vaccine ( season)2025 08/16/2022, 08/16/2022, 10/12/2021, Additional history existsInfluenza Vaccine (#1)/11/2022, 08/09/2022, 09/14/2021, Additional history exists Diabetes: Urine Protein Oaxetiugw35/10/2025Depression Screening /04/2025Fall Risk Gahweexfy60/04/2025Pneumococcal Vaccine: 50+ XyhdwNtxydnheo91/29/2017, 12/15/2015, 08/15/2010HIB VaccinesAged OutNo longer eligible based on patient's age to complete this topicHPV VaccinesAged OutNo longer eligible based on patient's age to complete this topicIPV Vaccines Aged OutNo longer eligible based on patient's age to complete this topic Meningococcal B VaccineAged OutNo longer eligible based on patient's age to complete this topicMeningococcal VaccineAged OutNo longer eligible based on patient's age to complete this topicRotavirus VaccinesAged OutNo longer eligible based on patient's age to complete this topic Procedures Procedure NamePriorityDate/TimeAssociated DiagnosisCommentsPARAVERTEBRAL FACET JT NERVE(S) W/ FLUORO CERV/THOC EA ADTL WDWIIWzryqlo04/06/2025 11:55 AM EST Radiculopathy, cervical region PARAVERTEBRAL FACET JT NERVE(S) W/ FLUORO CERV/THOC SGL SXVVXQokuvnd22/06/2025 11:55 AM EST Radiculopathy, cervical region FL LESS THAN 1 HOUR FXDYTJPECIOGKEPfttwig36/06/2025 11:52 AM EST Radiculopathy, cervical region POCT GLUCOSE METER UNSOLICITED QCPSWLBUbnujur25/06/2025 11:19 AM EST FL LESS THAN 1 HOUR ESVDBKIFDEVKNVHoxlpbz50/23/2025 12:54 PM EDT Spondylosis without myelopathy or radiculopathy, cervical region BILAT FACT JT INJ CERVICAL OR THORACIC, 2ND LEVEL W/ SFNIRozrvhq08/23/2025 12:49 PM EDT Spondylosis without myelopathy or radiculopathy, cervical region BILAT FACET JT INJ CERVICAL/THORACIC;1ST LEVEL W/REOQQadpjnn07/23/2025 12:49 PM EDT Spondylosis without myelopathy or radiculopathy, cervical region POCT GLUCOSE METER UNSOLICITED EFZWOCUHfolwyf16/23/2025 12:26 PM EDT from Last 3 Months Results * PARAVERTEBRAL FACET JT NERVE(S) W/ FLUORO CERV/THOC EA ADTL RIGHT (RADIOFREQUENCY ABLATION - RFA) (09/10/2025 11:55 AM EST)Anatomical Region LateralityModalityHipOtherSpecimen (Source)Anatomical Location / Laterality Collection Method / VolumeCollection TimeReceived Time Addenda Addendum by Jayden Sykes MD on 09/16/2025 3:00 PM EST Associated diagnosis should be: Spondylosis without myelopathy or radiculopathy, cervical region Indication below in error from scheduling. Jayden Sykes MD Narrative 09/14/2025 7:10 AM EST Table formatting from the original result was not included. Images from the original result were not included. Interventional Pain Management Procedure Note Staff Staff Role Jayden Sykes MD Proceduralist JOSE RAUL [employer]ants Manager Dao Somers, RN Nurse Yolanda Heaton, JAYLAN Nurse Procedure PARAVERTEBRAL FACET JT NERVE(S) W/ FLUORO CERV/THOC SGL RIGHT (RADIOFREQUENCY ABLATION - RFA) PARAVERTEBRAL FACET JT NERVE(S) W/ FLUORO CERV/THOC EA ADTL RIGHT (RADIOFREQUENCY ABLATION - RFA) Indication Radiculopathy, cervical region Sedation The patient was not sedated for this procedure. Complications None Estimated Blood Loss Nil Details of the Procedure RIGHT C4/5, C5/6 CERVICAL MEDIAL BRANCH NERVE RADIOFREQUENCY ABLATION Dx: Cervical Spondylosis without myelopathy The patient was brought back to the fluoroscopy suite via stretcher and positioned prone with the back of the neck prepped wide and draped with chlorahexadine x 2. IV access was obtained prior to the procedure. Continuous hemodynamic monitoring was initiated including blood pressure and pulse oximetry. The midpoint of the RIGHT C4 C5 and C 6 articular pillar at each level was identified on fluoroscopy. 1mL of 1% lidocaine was injected in the skin and subcutaneous tissues at each level for local anesthesia. Three 20ga 150mm insulated spinal needle with 10mm active tip was then advanced under incremental, bi-planar fluoroscopic guidance until the lateral border of the articular pillar at each level was contacted. This done sequentially at each level with fluoroscopy images saved to PACs. Sensory stimulation determined as well as confirming negative motor stimulation at 2hz and 3.0v. After negative aspiration for blood and CSF, each level was injected with 0.5mL of 0.25% bupivacaine and 1mg of dexamethasone. Radiofrequency was then delivered with a 80 degree temperature limit and 90 second treatment cycle at each level. Second treatment delivered if deemed necessary. The needles were then removed, small dressing applied. Patient taken to recovery in stable condition. Plan/Recommendation PLAN for left side in 2 weeks with consideration of IV sedation. RTC 6-8 weeks Pre-Op Pain Assessment Pain Assessment Pain Score: 10 - Worst possible pain Pain Location: Neck Pain Orientation: Right Pain Radiating Towards: radiates to occipital area- ONTIVEROS'S Pain Descriptors: Aching, Radiating, Throbbing Pain Frequency: Intermittent Pain Onset: Ongoing Clinical Progression: Gradually worsening Pain Interventions: Home medication, Medication (See MAR), Rest Post-Op Pain Assessment Pain Assessment Pain Score: 8 Pain Location: Shoulder Pain Orientation: Anterior Pain Radiating Towards: radiates to occipital area- ONTIVEROS'S Pain Descriptors: Aching, Radiating, Throbbing Pain Frequency: Intermittent Pain Onset: Ongoing Clinical Progression: Gradually worsening Pain Interventions: Home medication, Medication (See MAR), Rest I was present for the bryan and critical portions of the procedure. Jayden Sykes MD Authorizing ProviderResult TypeResult StatusAlexander Onel CERDAIMWalt PAIN PROCEDURESEdited Result - Final * PARAVERTEBRAL FACET JT NERVE(S) W/ FLUORO CERV/THOC SGL RIGHT (RADIOFREQUENCY ABLATION - RFA) (09/10/2025 11:55 AM EST)Anatomical RegionLateralityModality HipOtherSpecimen (Source)Anatomical Location / LateralityCollection Method / VolumeCollection TimeReceived Time Addenda Addendum by Jayden Sykes MD on 09/16/2025 3:00 PM EST Associated diagnosis should be: Spondylosis without myelopathy or radiculopathy, cervical region Indication below in error from scheduling. Jayden Sykes MD Narrative 09/14/2025 7:10 AM EST Table formatting from the original result was not included. Images from the original result were not included. Interventional Pain Management Procedure Note Staff Staff Role Jayden Sykes MD Proceduralist JOSE RAUL [employer] Manager Dao Somers, JAYLAN Nurse Yolanda Heaton RN Nurse Procedure PARAVERTEBRAL FACET JT NERVE(S) W/ FLUORO CERV/THOC SGL RIGHT (RADIOFREQUENCY ABLATION - RFA) PARAVERTEBRAL FACET JT NERVE(S) W/ FLUORO CERV/THOC EA ADTL RIGHT (RADIOFREQUENCY ABLATION - RFA) Indication Radiculopathy, cervical region Sedation The patient was not sedated for this procedure. Complications None Estimated Blood Loss Nil Details of the Procedure RIGHT C4/5, C5/6 CERVICAL MEDIAL BRANCH NERVE RADIOFREQUENCY ABLATION Dx: Cervical Spondylosis without myelopathy The patient was brought back to the fluoroscopy suite via stretcher and positioned prone with the back of the neck prepped wide and draped with chlorahexadine x 2. IV access was obtained prior to the procedure. Continuous hemodynamic monitoring was initiated including blood pressure and pulse oximetry. The midpoint of the RIGHT C4 C5 and C 6 articular pillar at each level was identified on fluoroscopy. 1mL of 1% lidocaine was injected in the skin and subcutaneous tissues at each level for local anesthesia. Three 20ga 150mm insulated spinal needle with 10mm active tip was then advanced under incremental, bi-planar fluoroscopic guidance until the lateral border of the articular pillar at each level was contacted. This done sequentially at each level with fluoroscopy images saved to PACs. Sensory stimulation determined as well as confirming negative motor stimulation at 2hz and 3.0v. After negative aspiration for blood and CSF, each level was injected with 0.5mL of 0.25% bupivacaine and 1mg of dexamethasone. Radiofrequency was then delivered with a 80 degree temperature limit and 90 second treatment cycle at each level. Second treatment delivered if deemed necessary. The needles were then removed, small dressing applied. Patient taken to recovery in stable condition. Plan/Recommendation PLAN for left side in 2 weeks with consideration of IV sedation. RTC 6-8 weeks Pre-Op Pain Assessment Pain Assessment Pain Score: 10 - Worst possible pain Pain Location: Neck Pain Orientation: Right Pain Radiating Towards: radiates to occipital area- ONTIVEROS'S Pain Descriptors: Aching, Radiating, Throbbing Pain Frequency: Intermittent Pain Onset: Ongoing Clinical Progression: Gradually worsening Pain Interventions: Home medication, Medication (See MAR), Rest Post-Op Pain Assessment Pain Assessment Pain Score: 8 Pain Location: Shoulder Pain Orientation: Anterior Pain Radiating Towards: radiates to occipital area- ONTIVEROS'S Pain Descriptors: Aching, Radiating, Throbbing Pain Frequency: Intermittent Pain Onset: Ongoing Clinical Progression: Gradually worsening Pain Interventions: Home medication, Medication (See MAR), Rest I was present for the bryan and critical portions of the procedure. Jayden Sykes MD Authorizing ProviderResult TypeResult StatusAlexandnitesh Sykes MDIMG PAIN PROCEDURESEdited Result - Final * FL LESS THAN 1 HOUR INTRAOPERATIVE (09/10/2025 11:52 AM EST) Only the most recent of2 resultswithin the time period is included. Anatomical RegionLateralityModalityX-Ray AngiographySpecimen (Source)Anatomical Location / LateralityCollection Method / VolumeCollection TimeReceived Time 09/10/2025 12:00 PM EST Impressions 09/10/2025 12:01 PM EST Intraoperative fluoroscopy provided for the clinical service during radiofrequency ablation from C4 to C6. ?? Reference air kerma 15.5 mGy. ??A radiologist was not present during this procedure. ??Questions regarding this exam should be directed to the clinical service that performed the procedure. This dictation was generated for documentation purposes for the fluoroscopic equipment utilization. Electronically signed: Wang Meadows. Narrative 09/10/2025 12:01 PM EST INTRAOPERATIVE FLUOROSCOPY HISTORY: Neck pain. Procedure Note Wang Meadows MD - 09/10/2025 INTRAOPERATIVE FLUOROSCOPY HISTORY: Neck pain. IMPRESSION: Intraoperative fluoroscopy provided for the clinical service during radiofrequency ablation from C4 to C6. Reference air kerma 15.5 mGy.A radiologist was not present during this procedure. Questions regardingthis exam should be directed to the clinical service that performed theprocedure. This dictation was generated for documentation purposes for thefluoroscopic equipment utilization. Electronically signed: Wang Meadows. Authorizing ProviderResult TypeResult StatusJayden ARMENTAG FLUOROSCOPY PROCEDURESFinal Result * (ABNORMAL) POCT glucose meter (09/10/2025 11:19 AM EST) Only the most recent of2 resultswithin the time period is included. ComponentValueRef RangeTest MethodAnalysis TimePerformed AtPathologist Signature Glucose QXK749(H)70 - 105 mg/dL09/10/2025 11:39 AM [facility]) Comment:mweberSpecimen (Source)Anatomical Location / LateralityCollection Method / VolumeCollection TimeReceived TimeBloodCapillary blood specimen / Unknown 09/10/2025 11:19 AM EST09/10/2025 11:39 AM EST Narrative [facility]) - 09/10/2025 11:39 AM EST Waived Testing in the ED is performed under the ED CLIA certificate #[id number]. Authorizing ProviderResult TypeResult StatusAlexahemant GARVEY BLOOD ORDERABLESFinal ResultPerforming OrganizationAddressCity/State/ZIP CodePhone Number [facility]) [address] [place] [place] [address] * BILAT FACT JT INJ CERVICAL OR THORACIC, 2ND LEVEL W/ IMAG - 2 of 2 (08/27/2025 12:49 PM EDT)Anatomical RegionLateralityModalityHipOtherSpecimen (Source) Anatomical Location / LateralityCollection Method / VolumeCollection Time Received Time Narrative 09/02/2025 11:43 AM EDT Table formatting from the original result was not included. Images from the original result were not included. Interventional Pain Management Procedure Note Staff Staff Role Jayden Sykes MD Proceduralist Yenny Myers, JOSE RAUL Grants Manager Mayank Hicks, RN Nurse Ashtyn Marmolejo, JAYLAN Nurse Procedure BILAT FACET JT INJ CERVICAL/THORACIC;1ST LEVEL W/IMAG (MEDIAL BRANCH BLOCK) BILAT FACT JT INJ CERVICAL OR THORACIC, 2ND LEVEL W/ IMAG (MEDIAL BRANCH BLOCK) Indication Spondylosis without myelopathy or radiculopathy, cervical region Sedation The patient was not sedated for this procedure. Complications none Estimated Blood Loss nil Details of the Procedure BILATERAL C4-5 and C5-6 CERVICAL FACET MEDIAL BRANCH NERVE BLOCK #2 1. Spondylosis without myelopathy or radiculopathy, cervical region ?? The patient was brought to the fluoroscopy suite. The patient was positioned prone on the fluoroscopy table. Continuous hemodynamic monitoring was initiated including blood pressure, EKG, and pulse oximetry. The skin overlying the entire cervical spine was prepped with chloroprep and draped into a sterile field. Fluoroscopy was used to identify the medial branch nerves as located at the mid waist of each cervical facet articular pillar of C4, C5, C6 on the RIGHT followed by LEFT side. Skin anesthesia was achieved using Lidocaine 1% over the injection sites. Two 25 gauge, spinal needle was slowly inserted at each level using AP, lateral and oblique fluoroscopic imaging. Final needle position was at the midpoint of the C 4, C5 and C6 of the articular pillars on the RIGHT followed by LEFT. Negative aspiration for blood or CSF was confirmed. Administration of < 0.5 mls 0.25% bupivacaine was injected at each level with images saved to PACS. The needles were removed and bleeding was nil. A sterile dressing was applied. The patient was brought to recovery in stable condition. Plan/Recommendation Plan for RFA on side per session at same sites for longer term Pre-Op Pain Assessment Pain Assessment Pain Score: 8 Pain Location: Neck Pain Orientation: Right, Left Pain Radiating Towards: up into head Pain Descriptors: Aching, Stabbing, Throbbing Pain Frequency: Constant/continuous Pain Onset: Ongoing Clinical Progression: Gradually worsening Post-Op Pain Assessment Pain Assessment Pain Score: 0 - No pain Pain Location: Neck Pain Orientation: Right, Left Pain Radiating Towards: up into head Pain Descriptors: Aching, Stabbing, Throbbing Pain Frequency: Constant/continuous Pain Onset: Ongoing Clinical Progression: Gradually worsening I was present for the entire procedure. Jayden Sykes MD Authorizing ProviderResult TypeResult StatusAlexander Onel CERDAIMG PAIN PROCEDURESFinal Result * BILAT FACET JT INJ CERVICAL/THORACIC;1ST LEVEL W/IMAG - 2 of 2 (08/27/2025 12:49 PM EDT)Anatomical RegionLateralityModalityHipOtherSpecimen (Source) Anatomical Location / LateralityCollection Method / VolumeCollection Time Received Time Narrative 09/02/2025 11:43 AM EDT Table formatting from the original result was not included. Images from the original result were not included. Interventional Pain Management Procedure Note Staff Staff Role Jayden Sykes MD Proceduralist Yenny Myers, ARRT Grants Manager Mayank Hicks, RN Nurse Ashtyn Marmolejo RN Nurse Procedure BILAT FACET JT INJ CERVICAL/THORACIC;1ST LEVEL W/IMAG (MEDIAL BRANCH BLOCK) BILAT FACT JT INJ CERVICAL OR THORACIC, 2ND LEVEL W/ IMAG (MEDIAL BRANCH BLOCK) Indication Spondylosis without myelopathy or radiculopathy, cervical region Sedation The patient was not sedated for this procedure. Complications none Estimated Blood Loss nil Details of the Procedure BILATERAL C4-5 and C5-6 CERVICAL FACET MEDIAL BRANCH NERVE BLOCK #2 1. Spondylosis without myelopathy or radiculopathy, cervical region ?? The patient was brought to the fluoroscopy suite. The patient was positioned prone on the fluoroscopy table. Continuous hemodynamic monitoring was initiated including blood pressure, EKG, and pulse oximetry. The skin overlying the entire cervical spine was prepped with chloroprep and draped into a sterile field. Fluoroscopy was used to identify the medial branch nerves as located at the mid waist of each cervical facet articular pillar of C4, C5, C6 on the RIGHT followed by LEFT side. Skin anesthesia was achieved using Lidocaine 1% over the injection sites. Two 25 gauge, spinal needle was slowly inserted at each level using AP, lateral and oblique fluoroscopic imaging. Final needle position was at the midpoint of the C 4, C5 and C6 of the articular pillars on the RIGHT followed by LEFT. Negative aspiration for blood or CSF was confirmed. Administration of < 0.5 mls 0.25% bupivacaine was injected at each level with images saved to PACS. The needles were removed and bleeding was nil. A sterile dressing was applied. The patient was brought to recovery in stable condition. Plan/Recommendation Plan for RFA on side per session at same sites for longer term Pre-Op Pain Assessment Pain Assessment Pain Score: 8 Pain Location: Neck Pain Orientation: Right, Left Pain Radiating Towards: up into head Pain Descriptors: Aching, Stabbing, Throbbing Pain Frequency: Constant/continuous Pain Onset: Ongoing Clinical Progression: Gradually worsening Post-Op Pain Assessment Pain Assessment Pain Score: 0 - No pain Pain Location: Neck Pain Orientation: Right, Left Pain Radiating Towards: up into head Pain Descriptors: Aching, Stabbing, Throbbing Pain Frequency: Constant/continuous Pain Onset: Ongoing Clinical Progression: Gradually worsening I was present for the entire procedure. Jayden Sykes MD Authorizing ProviderResult TypeResult StatusAlexandnitesh Sykes MDIMG PAIN PROCEDURESFinal Result from Last 3 Months Insurance MemberSubscriberPlan / Payer (Effective 2025-Present)Name:Dao Manning Relation to Subscriber:SelfName:Dao Manning Payer ID:[id number] Group ID:[id number] Type:Not on file Address: [address] [place] [address] Care Teams Team MemberRelationshipSpecialtyStart DateEnd Date Wonderly, MD Yolanda [address] [place] [address] PCP - GeneralInternal Medicine03/10/25
--- OUTSIDE RECORDS SUMMARY | 2025-09-29 11:17 | XMS_ITS | Clinical Summary ---
Author Organization [employer] [facility] Address [id number] [address] [place] [address] Care Team Providers Care Customer Quality Engineer Name Role Phone Yolanda Mae MD Primary Care Provider [phone] Allergies Active AllergyReactionsCriticalityNoted VzndWusohfalTicuncfzbtzhHmiyg52/14/2017 UscsunwlbidqTuttGrq12/10/2021 Other reaction(s): rash,itch Other Reaction(s): rash,itch TwjgktbhvgAqnun12/20/2022Fexofenadine JauFttwk96/05/6638Fpsqkgkzk60/20/2022 Other reaction(s): GI Upset LjfjbizaeltTsmdefvz44/20/2022 Medications MedicationSigDispense QuantityRefillsLast FilledStart DateEnd DateStatus loratadine (CLARITIN) 10 mg tablet Take 1 tablet (10 mg total) by mouth in the morning.Active cholecalciferol (VITAMIN D3) 50,000 units capsule Take 1 capsule (50,000 Units total) by mouth once a week.Active pravastatin (PRAVACHOL) 20 mg tablet Take 1 tablet (20 mg total) by mouth in the morning.10/09/2016Active metFORMIN (GLUCOPHAGE) 1000 mg tablet Take 1 tablet (1,000 mg total) by mouth in the morning and 1 tablet (1,000 mg total) before bedtime.03/24/2017Active tiZANidine (ZANAFLEX) 4 mg tablet Take 1 tablet (4 mg total) by mouth in the morning.03/14/2017Active acetaminophen-codeine (TYLENOL #3) 300-30 mg per tablet Take 1 tablet by mouth every 4 (four) hours as needed.01/08/2018Active sertraline 200 mg capsule Take 200 mg by mouth in the morning.02/19/2018Active omega 0-hkn-ypw-fish oil 1,200 (144-216) mg capsule Take by mouth in the morning.Active ubidecarenone/vitamin E mixed (COQ10 SG 100 ORAL) Take 1 tablet by mouth in the morning.Active MULTIVITAMIN ORAL Take by mouth as needed.Active levothyroxine (SYNTHROID, LEVOTHROID) 50 MCG tablet Take 1 tablet (50 mcg total) by mouth in the morning.Active losartan (COZAAR) 100 mg tablet Take 0.5 tablets (50 mg total) by mouth in the morning.10/02/2023ctive insulin glargine,hum.rec.anlog (TOUJEO SOLOSTAR U-300 INSULIN SUBQ) Inject 20 Unit under the skin in the morning.Active baclofen (LIORESAL) 10 mg tablet Indications:Cervicogenic migraine,Cervico-occipital neuralgia of right side, Cervical paraspinal muscle spasmTAKE 1/2 TO 1 (ONE-HALF TO ONE) TABLET BY MOUTH THREE TIMES DAILY NEEDED FOR HEADACHE/NECK PAIN 90 tablet 108ctive Additional Information Patient not taking.Reported on 03/23/2025 insulin aspart U-100 (NovoLOG Flexpen U-100 Insulin) 100 unit/mL (3 mL) insulin pen Inject 5 Units under the skin nightly.05/26/2024ctive rimegepant 75 mg tablet,disintegrating Indications:Intractable chronic migraine without aura and without status migrainosus1 tablet p.o. at the onset headache/migraine. Maximum 1 tablet per day 8 tablet 4Active Additional Information Patient not taking.Reported on 03/23/2025 primidone (MYSOLINE) 50 mg tablet Indications:Essential tremorTake 1 tablet (50 mg total) by mouth 3 (three) times a day. 270 tablet 304506Active gabapentin (NEURONTIN) 600 mg tablet Indications:Diabetic polyneuropathy associated with diabetes mellitus due to underlying condition ([facility])Take 2 tablets twice a day 240 tablet 5Active Active Problems Patient Care Coordination No te Formatting of this note migh t be different from the original. DME: [facility] ProblemNoted DateDiagnosed DatePreoperative jlkwyqfhl51/22/2022lass 3 severe obesity due to excess calories without serious comorbidity in adult02/04/2021 Mixed icvkcxjdtjmvfg45/02/2021enign essential HTN02/04/2021bnormal EKG 02/04/2021OB (shortness of breath)01/06/2021ubacute cough01/06/2021OSA on CPAP 12/27/2016 Resolved Problems ProblemNoted DateDiagnosed DateResolved DateChest tbrujsfpq73 Morbid obesity due to excess kmxotslu36Nocturnal hypoxia Encounters DateTypeDepartmentCare LrxmLkirlpcfknj20/12/2025Telephone [facility] [address] [place] [address] Pallavi Lewisulefrflorence Last 3 Months Family History Medical HistoryRelationNameCommentsCancerFatherHeart diseaseFatherNo Known ProblemsMotherBreast cancerSisterRelationNameStatusCommentsFatherDeceasedMother AliveSister Social History Tobacco UseTypesPacks/DayYears UsedDateSmoking Tobacco: FormerCigarettesQuit: 1974Smokeless Tobacco: Never Tobacco Cessation:Counseling Given: Not Answered Alcohol UseStandard Drinks/WeekCommentsNo0 (1 standard drink = 0.6 oz pure alcohol)PHQ-2AnswerDate RecordedTotal Shjnx0045ChildcareAnswerDate GgtmphzsOlroopguuWxnjvsy21/12/2019EmploymentAnswerDate RecordedEmploymentUnknown 04/16/2019Hunger ScreeningAnswerDate RecordedWithin the past 12 months we worried whether our food would run out before we got money to buy more.Never True02/26/2025Within the past 12 months the food we bought just didn't last and we didn't have money to get more.Never True02/26/2025Purpose - LifeAnswerDate RecordedPurpose and direction in fpipNfuqrht95/11/2021CommentsNoSex and Gender InformationValueDate RecordedSex Assigned at BirthNot on fileLegal Sex Srubsl4306/10/2015 11:26 AM EDTGender IdentityNot on fileSexual OrientationNot on file Last Filed Vital Signs Vital SignReadingTime TakenCommentsBlood Desnwsms238/6405 11:03 AM EDT Tbbzd886203/23/2025 11:03 AM GTCVqowpabprds12.2 ??C (97.1 ??F)11/15/2023 7:07 AM ESTRespiratory Mqjv882511/15/2023 8:55 AM ESTOxygen Iaheutwryn39%03/10/2024 11:25 AM EDTInhaled Oxygen Concentration--Btrgzs462.5 kg (312 lb)03/23/2025 11:03 AM KYZOpludx424.1 cm (5' 5 )03/23/2025 11:03 AM EDTBody Mass Index51.9203/23/2025 11:03 AM EDT Plan of Treatment DateTypeDepartmentCare Team (Latest Contact Info)Jflfjkigqkc30/30/2025 11:30 AM ESTOffice Visit [facility] Department of [place] [address] [place] [address] Juanpablo Koch MD [address] [place] [address] [address] [place] [address] 11/18/2025 9:00 AM ESTOffice Visit [facility] Department of [address] [place] [address] Lawrence Cheema MD [address] [place] [address] [address] [place] [address] Health MaintenanceDue DateLast DoneCommentsDiabetic Ophthalmology Exam1950 Adult BMI Follow Up Plan1968Diabetic Foot Exam1968Zoster (Shingles) Vaccine (1 of 2)2000RSV ( or age 60+ yrs) (1 - Risk 60-74 years 1- dose series)2010DTaP,Tdap and Td Vaccines (2 - Td or Tdap)03/22/2021 03/22/2011Fall Risk Vzrvokwye88/OVID-19 Vaccine ( season)/10/2022, 10/12/2021, 02/03/2021, Additional history exists Influenza Fjmkvmb05/11/2022, 08/09/2022, 09/14/2021, Additional history existsDepression Ifzztider01/dult BMI Screening Tobacco Rbpkyiyso53 Medical Devices ImplantedTypeAreaManufacturerDevice IdentifierShelf Expiration DateModel / Serial / LotLens Iol [id number].200 [facility] [id number] - [id number] Implanted:Qty: 1 on 11/15/2023 by Elysia Robb MD at [facility] [employer]06/30/2027SY60WF.200 / [id number] / NA Insurance Care Teams Team MemberRelationshipSpecialtyStart DateEnd Yolanda Moore MD [address] [place] [address] PCP - GeneralFamily Medicine12/27/16
--- OUTSIDE RECORDS SUMMARY | 2025-09-29 11:17 | XMS_ITS | Clinical Summary ---
Author Organization [facility] Address [address] [place] [address] Care Team Providers Care Resource Director Name Role Phone Yolanda Mae MD Primary Care Provider [phone] Allergies Active AllergyReactionsCriticalityNoted DateCommentsNo Known Bfofaysga12/28/2007 Medications MedicationSigDispense QuantityRefillsLast FilledStart DateEnd DateStatus LOSARTAN POTASSIUM (LOSARTAN ORAL) 07/02/2007ctive GABAPENTIN ORAL 07/02/2007ctive METFORMIN HCL (METFORMIN ORAL) 07/02/2007ctive ACETAMINOPHEN ORAL 07/02/2007ctive atorvastatin (LIPITOR) 40 mg tablet Take Tablet by mouth Daily tablet 09/16/2010ctive losartan (COZAAR) 25 mg tablet Take Tablet by mouth Daily tablet 09/16/2010ctive Social History Tobacco UseTypesPacks/DayYears UsedDateSmoking Tobacco: Never Assessed CommentsUnknownSex and Gender InformationValueDate RecordedSex Assigned at Not on fileLegal OtzYgemiu86/17/2013 11:05 PM ESTGender IdentityNot on file Sexual OrientationNot on file Last Filed Vital Signs Vital SignReadingTime TakenCommentsBlood Sesvurkk450/50111/20/2009 1:38 PM EST Jcfwl888409/20/2010 1:38 PM TVCEuxuutiqswv78.4 ??C (97.5 ??F)09/20/2010 1:38 PM ESTRespiratory Khmj6441 1:38 PM ESTOxygen Saturation--Inhaled Oxygen Concentration--Mfoopx859.4 kg (298 lb 8 oz)09/20/2010 1:38 PM TZJEaqwby421.4 cm (5' 5.5 )09/20/2010 1:38 PM ESTBody Mass Index48.9209/20/2010 1:38 PM EST Plan of Treatment Health MaintenanceDue DateLast DoneCommentsCologuard (average risk only) 0883Glkccknaifz83/02/1951Colorectal Cancer Jjkqxxjhz18/02/1951FIT (average risk only)1950Hepatitis C Qdikasgju46/02/1951Alternating Mammogram/MRI 1962DTaP,Tdap,and Td Vaccines (1 - Tdap)1969Breast Cancer Screening 12/07/19709950Ojtcayiyh40/02/1971Pneumococcal Vaccines 50years + (1 of 1 - PCV) 2000Zoster Recombinant Vaccines (1 of 2)2000DEXA Bone Density Qovzvzco77/02/2016COVID-19 Vaccine (1 - 2024- season)2025Influenza Vaccine (#1)2025Respiratory Syncytial Virus (RSV) or ages 60 years and older (1 - 1-dose 75+ series)2025Respiratory Syncytial Virus (RSV) ages 0 thru 19 monthsAged OutNo longer eligible based on patient's age to complete this topic Care Teams Team MemberRelationshipSpecialtyStart DateEnd Date Wonderly, Yolanda Salazar MD [address] [place] [phone] PCP - Rxciauv11/14/11
--- OUTSIDE RECORDS SUMMARY | 2025-09-29 11:18 | XMS_ITS | Encounter Summary ---
Author Organization [facility] Address [address] [place] [address] Care Team Providers Care Rivet Hammer Machine Operator Name Role Phone Yolanda Mae MD Primary Care Provider Encounter Details DateTypeDepartmentCare Team (Latest Contact Info)Xwfhkwkwyff63/13/2025Orders Only [facility] [address] [place] [phone] Jimena Cai, МАРИЯ [address] [place], [place] [id number] Spondylosis without myelopathy or radiculopathy, cervical region (Primary Dx) Social History Tobacco UseTypesPacks/DayYears UsedDateSmoking Tobacco: FormerCigarettes Smokeless Tobacco: NeverAlcohol UseStandard Drinks/WeekCommentsNever0 (1 standard drink = 0.6 oz pure alcohol)Humiliation, Afraid, Rape, and Kick questionnaireAnswerDate RecordedWithin the last year, have you been afraid of your partner or ex-partner?No03/10/2025Emotionally AbusedNot on file03/10/2025 Physically AbusedNot on file03/10/2025Sexually AbusedNot on file03/10/2025PHQ-2 AnswerDate RecordedPatient Health Questionnaire-2 Qgyqj20603/10/2025 CommentsNoSex and Gender InformationValueDate RecordedSex Assigned at Iqqdxu2508/27/2025 11:03 AM EDTLegal KysFmgyij01/29/2022 10:14 PM EDTGender UxcuyjlkBvcezu42/23/2025 11:03 AM EDTSexual OrientationHeterosexual or Straight 08/27/2025 11:03 AM EDTdocumented as of this encounter Plan of Treatment DateTypeDepartmentCare Team (Latest Contact Info)Vzzvnpfzooe44/12/2026 11:00 AM ESTFollow-Up [facility] [address] [place] [address] Jayden Sykes MD [address] [facility], [address] [place] [address] documented as of this encounter Visit Diagnoses Diagnosis Spondylosis without myelopathy or radiculopathy, cervical region- Primary documented in this encounter Care Teams Team MemberRelationshipSpecialtyStart DateEnd Date Yolanda Mae MD [address] [place] [address] PCP - GeneralInternal Medicine03/10/25documented as of this encounter
--- OUTSIDE RECORDS SUMMARY | 2025-09-29 11:18 | XMS_ITS | Encounter Summary ---
Author Organization [facility] Address [address] [place] [address] Care Team Providers Care Utility Operator Name Role Phone Yolanda Mae MD Primary Care Provider [phone] Encounter Details DateTypeDepartmentCare Team (Latest Contact Info)Bslbnirrytx33/13/2025Telephone [facility] Procedure Room [address] [place] [place] [phone] Dao Somers, JAYLAN Social History Tobacco UseTypesPacks/DayYears UsedDateSmoking Tobacco: FormerCigarettes Smokeless Tobacco: NeverAlcohol UseStandard Drinks/WeekCommentsNever0 (1 standard drink = 0.6 oz pure alcohol)Humiliation, Afraid, Rape, and Kick questionnaireAnswerDate RecordedWithin the last year, have you been afraid of your partner or ex-partner?No03/10/2025Emotionally AbusedNot on file03/10/2025 Physically AbusedNot on file03/10/2025Sexually AbusedNot on file03/10/2025PHQ-2 AnswerDate RecordedPatient Health Questionnaire-2 Rgqct56503/10/2025 CommentsNoSex and Gender InformationValueDate RecordedSex Assigned at Ilnubu1108/27/2025 11:03 AM EDTLegal BsfEvnhby28/29/2022 10:14 PM EDTGender QfjgsukuMafiot02/23/2025 11:03 AM EDTSexual OrientationHeterosexual or Straight 08/27/2025 11:03 AM EDTdocumented as of this encounter Miscellaneous Notes * Telephone Encounter - Dao Somers RN - 09/17/2025 2:31 PM EST Patient called the office and was upset with the amount of pain she was still having post Cervical RFA 1 week ago. Patient c/o pain from mid spine and radiating out ro her shoulder. She also reports pain when she tilts her head. Spoke with Melinda and Jimena as she was wanting to cancel her left RFA. Patient was notified that a steroid pack prescription was sent to her pharmacy. Continue with ice to the area. We will keep the left RFA on schedule at this time. Patient was happy with this resolution. documented in this encounter Plan of Treatment DateTypeDepartmentCare Team (Latest Contact Info)Iuuvaxxwkdm89/12/2026 11:00 AM ESTFollow-Up [facility] Medicine [address] [place] [address] Jayden Sykes MD [address] [facility] [facility] [place] [address] documented as of this encounter Visit Diagnoses Not on filedocumented in this encounter Care Teams Team MemberRelationshipSpecialtyStart DateEnd Date Yolanda Mae MD [address] [place] [address] PCP - GeneralInternal Medicine03/10/25documented as of this encounter
--- NOTE | 2025-09-29 11:21 | XR_ITS ---
The [address] [address] Patient Name: KRZYSZTOF LANDA MRN: [id number] date: 1950 Sex: F Assigned Patient Location: [facility] Current Patient Location: [facility] Accession/Order Number: [id number] Exam Date: 09/29/2025 11:30 Report Date: 09/29/2025 11:55 At the request of: MARGARITA RICHEY DPLamar Procedure: XR ankle RT min 3V RIGHT ANKLE - 3 views CLINICAL DATA: Chronic right ankle pain and swelling. Multiple surgeries. COMPARISON: 03/07/2023 AP, lateral and oblique views were obtained. There is osteopenia. There is prior osteotomy at the distal fibula. There is a shamir that extends from the distal tibia down to the talus and calcaneus where there are additional screws. The hardware appears intact and unchanged from the comparison. There is flattening of plantar arch. There are severe degenerative changes at the ankle, hind and midfoot which have not significantly changed. There is no acute fracture or dislocation. Diffuse soft tissue swelling is present. There is also subcutaneous edema at the lower leg. XR/XR ankle RT min 3V IMPRESSION: OSTEOPENIA WITH STABLE POSTOPERATIVE AND DEGENERATIVE CHANGES. Impression dictated by: Dora Mora M.D. 09/29/2025 11:55 AM Dictation Location: [place] [address] Electronically authenticated by: [id number] Y Date: 09/29/2025 11:55
== END 2025-09-29 11:08 | disposition home or self-care (01) ==
LOC: RAD 11:13
PROVIDERS: PCP Family Medicine; Visit Provider Podiatrist Foot & Ankle Surgery
DX: M25.571 Pain in right ankle and joints of right foot (principal); M85.88 Other specified disorders of bone density and structure, other site
CPT/HCPCS: 73610